=== PATIENT | female | born 1980 | race Caucasian/White ===

== ENCOUNTER 2017-03-18 07:47 | Day surgery (SDC) | payer BC, OTHER ==
--- NOTE | 2017-03-18 07:43 | PCM.PREANE ---
Preanesthetic Assessment - Anesthesia/Transfusion/Family Hx Anesthesia History: Prior Anesthesia Without Reaction Family History of Anesthesia Reaction: No Transfusion History: No Prior Transfusion(s) Intubation History: Unknown - Review of Systems General: No Symptoms Pulmonary: No Symptoms Cardiovascular: Palpitations Gastrointestinal: No symptoms Neurological: No Symptoms, Dizziness (Patient states she has potentially vertigo on occasion.) Other: Reports: Easy Bruising - Physical Assessment NPO Status Date: 03/17/17 NPO Status Time: 23:00 Pulse: 78 O2 Sat by Pulse Oximetry: 97 Respiratory Rate: 16 Blood Pressure: 130/65 Temperature: 36.8 C Height: 1.55 m Weight: 99.79 kg ASA Class: 2 Mental Status: Alert & Oriented x3 Airway Class: Mallampati = 2 Dentition: Reports: Normal Dentition, [place](s) (upper front), Caries Thyro-Mental Finger Breadths: 3 Mouth Opening Finger Breadths: 3 ROM/Head Extension: Full Lungs: Clear to auscultation, Normal respiratory effort Cardiovascular: Regular Rate, Regular Rhythm, No Murmurs - Lab Values: HCG is negative. - Allergies Allergies/Adverse Reactions: Allergies Allergy/AdvReac Type Severity Reaction Status Date / Time adhesive Allergy Rash Verified 03/17/17 13:27 - Anesthesia Plan Pre-Op Medication Ordered: None - Acknowledgements Anesthesia Type Planned: MAC Pt an Appropriate Candidate for the Planned Anesthesia: Yes Alternatives and Risks of Anesthesia Discussed w Pt/Guardian: Yes Pt/Guardian Understands and Agrees with Anesthesia Plan: Yes PreAnesthesia Questionnaire HEENT History: Reports: Impaired Vision, Other (See Below) Other HEENT History: contact/glasses Cardiovascular History: Reports: None Respiratory History: Reports: None Genitourinary History: Reports: Other (See Below) Other Genitourinary History: L breast mass 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: Musculoskeletal History: Reports: None Neurological History: Reports: None Psychiatric History: Reports: None Endocrine/Metabolic History: Reports: None Hematologic History: Reports: None Immunologic History: Reports: None Oncologic (Cancer) History: Reports: None Dermatologic History: Reports: Other (See Below) Other Dermatologic History: contact dermatitis, infected cyst of skin, sebaceous cyst - Past Surgical History Head Surgeries/Procedures: Reports: None GI Surgical History: Reports: Appendectomy Female Surgical History: Reports: Section - SUBSTANCE USE Smoking Status *Q: Never Smoker Recreational Drug Use History: No - HOME MEDS Home Medications: Home Meds . [No Known Home Meds] 03/17/17 [History] - CURRENT (IN HOUSE) MEDS Current Meds: Current Medications Lactated Ringer's (Ringers, Lactated) 1,000 mls @ 125 mls/hr IV ASDIRECTED URBANO Lidocaine/Sodium Bicarbonate (Buffered Lidocaine 1% In Ns 8.4%) 0.25 ml IV ONETIME PRN PRN Reason: Prior to IV Start Sodium Chloride (Saline Flush) 10 ml FLUSH ASDIRECTED PRN PRN Reason: Keep Vein Open Discontinued Medications Cefazolin Sodium (Ancef) Confirm Administered Dose 2 gm .ROUTE .STK-MED ONE Stop: 03/18/17 07:38 Fentanyl (Sublimaze) Confirm Administered Dose 100 mcg .ROUTE .STK-MED ONE Stop: 03/18/17 07:38 Lidocaine HCl (Xylocaine-Mpf 1%) Confirm Administered Dose 4 mls @ as directed .ROUTE .STK-MED ONE Stop: 03/18/17 07:38 Midazolam HCl (Versed 1 Mg/Ml) Confirm Administered Dose 2 mg .ROUTE .STK-MED ONE Stop: 03/18/17 07:39 Propofol (Diprivan 20 Ml) Confirm Administered Dose 200 mg .ROUTE .STK-MED ONE Stop: 03/18/17 07:38
[~2017-03-18 07:47] MED LIST: Lactated Ringers 1,000 ML IV SCH; Lidocaine 1% 4 ML ONE; Lidocaine 1%/Sod Bicarbonate in NS 8.4% 1 ML Syringe IV PRN; Midazolam 1 MG/ML 2 ML SDV ONE; Propofol 200 MG/20 ML SDV ONE; Sodium Chloride 0.9% 10 ML Syringe FLUSH PRN; ceFAZolin 1 GM Vial ONE; fentaNYL 100 MCG/2 ML SDV ONE
[2017-03-18] MEDS ORDERED: Lidocaine 1% with EPINEPHrine 1:100,000 20 ML MDV ONE (07:55)
[2017-03-18] MEDS ORDERED: Bupivacaine 0.5%/EPINEPHrine 1:200,000 50 ML MDV ONE (07:55)
[2017-03-18] MEDS ORDERED: Ondansetron 4 MG/2 ML SDV IVPUSH PRN (08:51)
[2017-03-18] MEDS ORDERED: fentaNYL 100 MCG/2 ML SDV IVPUSH PRN (08:51)
--- NOTE | 2017-03-18 09:19 | PCM48HPAN ---
Post Anesthesia Note - EVALUATION WITHIN 48HRS OF ANESTHETIC Vital Signs in Normal Range: Yes Patient Participated in Evaluation: Yes Respiratory Function Stable: Yes Airway Patent: Yes Cardiovascular Function Stable: Yes Hydration Status Stable: Yes Pain Control Satisfactory: Yes Nausea and Vomiting Control Satisfactory: Yes Mental Status Recovered: Yes
--- NOTE | 2017-03-18 09:26 | PCM.OPNOTE ---
- General Post-Op/Procedure Note Date of Surgery/Procedure: 03/18/17 Operative Procedure(s): Elliptical excision of a 1 cm junctional skin cyst left breast Findings: Some chronic scarring with a 1 mm chronically inflamed skin cyst left breast Pre Op Diagnosis: Skin cyst left breast Post-Op Diagnosis: Same Anesthesia Technique: Local, MAC, Moderate sedation Primary Surgeon: Deshawn Barros Pathology: Skin cyst EBL in mLs: 1 Complications: None Condition: Good Free Text/Narrative:: After adequate IV sedation and analgesia was obtained the patient was placed in the supine position. The left breast and anterior chest wall were prepped and draped sterilely for the procedure. Several cc of local analgesia was infiltrated into the skin and subcutaneous tissue to the area. A 1-1/2 cm elliptically based excision was used to excise the previous I and D site. Flaps were raised superiorly and inferiorly with iris scissors. I the cyst and some scarring from surrounding subcutaneous tissue. I then closed the subcutaneous tissue with interrupted 3-0 Vicryl suture. The skin was closed with 5-0 Vicryl suture. Steri-Strips and gauze with Tegaderm were used for the dressing. There were no combinations.
[2017-03-18 10:23] VITALS: BP 110/64
== END 2017-03-18 10:25 | disposition home or self-care (01) ==
LOC: JD.SDS 07:47
PROVIDERS: ATTEND Surgery
PROC: 0HBU0ZZ Excision of Left Breast, Open Approach (ICD-10-PCS; principal; 2017-03-18)
DX: L91.0 Hypertrophic scar (principal); Z90.49 Acquired absence of other specified parts of digestive tract; Z98.890 Other specified postprocedural states
CPT/HCPCS: 19120; 81025; J0690; J2250; J3010; J7120; 00400; J2704

== ENCOUNTER 2019-07-24 18:50 | Emergency (ER) | payer BC ==
[2019-07-24 19:01] VITALS: BP 150/79; PULSE 94
[2019-07-24] MEDS ORDERED: Sodium Chloride 0.9% 10 ML Syringe FLUSH PRN (19:32)
[2019-07-24] MEDS ORDERED: HYDROmorphone 0.5 MG/0.5 ML Syringe IVPUSH ONE (19:34)
[2019-07-24] MEDS ORDERED: Sodium Chloride 0.9% 1,000 ML IV ONE (19:34)
--- NOTE | 2019-07-24 19:55 | EDM.PDOC ---
<Ping Monroe - Last Filed: 07/24/19 19:48> ED HPI GENERAL MEDICAL PROBLEM - General Chief Complaint: Abdominal Pain Stated Complaint: RIGHT SIDE PAIN Time Seen by Provider: 07/24/19 19:08 Source of Information: Reports: Patient History Limitations: Reports: No Limitations - History of Present Illness INITIAL COMMENTS - FREE TEXT/NARRATIVE: Juanita is a pleasant 39 year old female who came to the ED today to be evaluated for right sided abdominal pain. The pain started yesterday around noon and has gotten progressively worse since that time. She describes the pain as sharp, becoming worse with inspiration and palpation along the lower border of her ribs. The pain goes from her right hip to the bottom of her right rib cage with radiation into her right shoulder. She also states she is having a hard time breathing due to the pain. She has also had an increase in heart burn over the last 24 hours. She has a history of gallstones and an appendectomy in 2003. She has had a normal bowel movement today and yesterday. She denies any nausea, vomiting, weight change, fever or chills. Her last meal was around 1230 today. Right Abdomen Pain Score (Numeric/FACES): 7 - Related Data Allergies Allergy/AdvReac Type Severity Reaction Status Date / Time adhesive Allergy Rash Verified 07/24/19 19:01 Home Meds: Home Meds Levonorgestrel-Ethin Estradiol [Levonor-Eth Estrad 0.1-0.02 mg] 1 tab PO DAILY 07/24/19 [History] metroNIDAZOLE [Metronidazole] 1 applic TOP DAILY 07/24/19 [History] valACYclovir [Valtrex] 500 mg PO ASDIRECTED PRN 07/24/19 [History] Past Medical History HEENT History: Reports: Impaired Vision, Other (See Below) Other HEENT History: contact/glasses Cardiovascular History: Reports: None Respiratory History: Reports: None Genitourinary History: Reports: Other (See Below) Other Genitourinary History: L breast mass 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: Musculoskeletal History: Reports: None Neurological History: Reports: None Psychiatric History: Reports: None Endocrine/Metabolic History: Reports: Obesity/BMI 30+ Hematologic History: Reports: None Immunologic History: Reports: None Oncologic (Cancer) History: Reports: None Dermatologic History: Reports: Other (See Below) Other Dermatologic History: contact dermatitis, infected cyst of skin, sebaceous cyst - Infectious Disease History Infectious Disease History: Reports: None - Past Surgical History Head Surgeries/Procedures: Reports: None GI Surgical History: Reports: Appendectomy Female Surgical History: Reports: Section Social & Family History - Tobacco Use Smoking Status *Q: Never Smoker - Caffeine Use Caffeine Use: Reports: Coffee - Recreational Drug Use Recreational Drug Use: No ED ROS GENERAL - Review of Systems Review Of Systems: See Below Constitutional: Reports: No Symptoms HEENT: Reports: No Symptoms Respiratory: Reports: No Symptoms Cardiovascular: Reports: No Symptoms Endocrine: Reports: No Symptoms GI/Abdominal: Reports: Abdominal Pain, Decreased Appetite. Denies: Constipation , Diarrhea, Distension, Vomiting : Reports: No Symptoms Musculoskeletal: Reports: Shoulder Pain (right shoulder ) Skin: Reports: No Symptoms Neurological: Reports: No Symptoms Psychiatric: Reports: No Symptoms Hematologic/Lymphatic: Reports: No Symptoms Immunologic: Reports: No Symptoms ED EXAM, GI/ABD - Physical Exam Exam: See Below Exam Limited By: No Limitations General Appearance: Alert, WD/WN, No Apparent Distress Respiratory/Chest: No Respiratory Distress, Lungs Clear, Normal Breath Sounds, No Accessory Muscle Use, Chest Non-Tender Cardiovascular: Normal Peripheral Pulses, Regular Rate, Rhythm, No Edema, No Gallop, No JVD, No Murmur, No Rub GI/Abdominal Exam: Normal Bowel Sounds, Soft, No Organomegaly, No Distention, No Abnormal Bruit, No Mass, Tender (Female) Exam: Normal External Exam, Normal Speculum Exam, Normal Bimanual Exam Rectal (Female) Exam: Normal Exam, Normal Rectal Tone Back Exam: Normal Inspection, Full Range of Motion. No: CVA Tenderness (L), CVA Tenderness (R) Extremities: Normal Inspection, Normal Range of Motion, Non-Tender, No Pedal Edema, Normal Capillary Refill Neurological: Alert, Oriented Psychiatric: Normal Affect, Normal Mood Skin Exam: Warm, Dry, Intact, Normal Color, No Rash Lymphatic: No Adenopathy Course - Vital Signs Last Recorded V/S: Last Vital Signs Temp 97.4 F 07/24/19 18:57 Pulse 94 07/24/19 18:57 Resp 16 07/24/19 18:57 BP 150/79 H 07/24/19 18:57 Pulse Ox 98 07/24/19 18:57 - Orders/Labs/Meds Orders: Active Orders 24 hr Category Date Time Status Peripheral IV Care [RC] . DIRECTED Care 07/24/19 19:34 Active Abdomen Ltd [US] Stat Exams 07/24/19 19:30 Taken Sodium Chloride 0.9% [Saline Flush] Med 07/24/19 19:32 Active 10 ml FLUSH ASDIRECTED PRN Peripheral IV Insertion Adult [OM.PC] Stat Oth 07/24/19 19:32 Ordered Medication Orders Sodium Chloride (Saline Flush) 10 ml FLUSH ASDIRECTED PRN PRN Reason: Keep Vein Open Last Admin: 07/24/19 19:58 Dose: 10 ml Labs: Laboratory Tests 07/24/19 07/24/19 07/24/19 Range/Units 19:45 19:45 20:30 WBC 9.77 (3.98-10.04) K/mm3 RBC 4.73 (3.98-5.22) M/mm3 Hgb 12.8 (11.2-15.7) gm/dl Hct 38.0 (34.1-44.9) % MCV 80.3 (79.4-94.8) fl MCH 27.1 (25.6-32.2) pg MCHC 33.7 (32.2-35.5) g/dl RDW Std Deviation 40.6 (36.4-46.3) fL Plt Count 343 (182-369) K/mm3 MPV 8.9 L (9.4-12.3) fl Neutrophils % (Manual) 62 H (40-60) % Band Neutrophils % 1 (0-10) % Lymphocytes % (Manual) 28 (20-40) % Atypical Lymphs % 0 % Monocytes % (Manual) 9 (2-10) % Eosinophils % (Manual) 0 L (0.7-5.8) % Basophils % (Manual) 0 L (0.1-1.2) Platelet Estimate Adequate RBC Morph Comment Normal Sodium 138 (136-145) mEq/L Potassium 3.7 (3.5-5.1) mEq/L Chloride 103 (98-107) mEq/L Carbon Dioxide 24 (21-32) mEq/L Anion Gap 14.7 (5-15) BUN 11 (7-18) mg/dL Creatinine 0.9 (0.55-1.02) mg/dL Est Cr Clr Drug Dosing 62.70 mL/min Estimated GFR (MDRD) > 60 (>60) mL/min BUN/Creatinine Ratio 12.2 L (14-18) Glucose 84 (74-106) mg/dL Calcium 8.8 (8.5-10.1) mg/dL Total Bilirubin 0.3 (0.2-1.0) mg/dL GGT 27 (5-55) U/L AST 14 L (15-37) U/L ALT 24 (14-59) U/L Alkaline Phosphatase 77 (46-116) U/L Total Protein 8.0 (6.4-8.2) g/dl Albumin 4.0 (3.4-5.0) g/dl Globulin 4.0 gm/dL Albumin/Globulin Ratio 1.0 (1-2) Lipase 90 (73-393) U/L Urine Color Light yellow (Yellow) Urine Appearance Clear (Clear) Urine pH 6.0 (5.0-8.0) Ur Specific Burnham 1.015 (1.005-1.030) Urine Protein Negative (Negative) Urine Glucose (UA) Negative (Negative) Urine Ketones Negative (Negative) Urine Occult Blood Negative (Negative) Urine Nitrite Negative (Negative) Urine Bilirubin Negative (Negative) Urine Urobilinogen 0.2 (0.2-1.0) Ur Leukocyte Esterase Negative (Negative) Urine RBC 0-5 (0-5) /hpf Urine WBC 0-5 (0-5) /hpf Ur Squamous Epith Cells 0-5 (0-5) /hpf Urine Bacteria Occasional (FEW) /hpf Urine Mucus Not seen (FEW) /hpf Meds: Medications Generic Name Dose Route Start Last Admin Trade Name Freq PRN Reason Stop Dose Admin Sodium Chloride 10 ml 07/24/19 19:32 07/24/19 19:58 Saline Flush FLUSH 10 ml ASDIRECTED PRN Administration Keep Vein Open Discontinued Medications Generic Name Dose Route Start Last Admin Trade Name Freq PRN Reason Stop Dose Admin Hydromorphone HCl 0.5 mg 07/24/19 19:34 07/24/19 19:52 Dilaudid IVPUSH 07/24/19 19:35 0.5 mg ONETIME ONE Administration Sodium Chloride 1,000 mls @ 500 mls/hr 07/24/19 19:34 07/24/19 19:58 Normal Saline IV 07/24/19 21:33 500 mls/hr ONETIME ONE Administration Ondansetron HCl 4 mg 07/24/19 20:01 07/24/19 21:53 Zofran IVPUSH 07/24/19 20:02 Not Given ONETIME ONE Departure - Departure Disposition: Home, Self-Care 01 Clinical Impression: Biliary colic Cholelithiasis Qualifiers: Cholelithiasis location: gallbladder Cholecystitis presence: without cholecystitis Biliary obstruction: without biliary obstruction Qualified Code(s) : K80.20 - Calculus of gallbladder without cholecystitis without obstruction - Discharge Information Instructions: Cholelithiasis, [id number], Biliary Colic, Adult, Gallbladder Eating Plan Referrals: Cecilia Dao PRINCIPAL MECHANICAL ENGINEER [Primary Care Provider] - Forms: ED Department Discharge Additional Instructions: You were evaluated in the ER today regarding your right upper quadrant pain. Your laboratory evaluation was within normal limits, your ultrasound demonstrated that you do have this a stone in her gallbladder, but there was no acute gallbladder infection at today's visit. A surgeon, Dr. Smith was consulted on your case, and he suggested taking 60 mg ibuprofen every 6 hours as needed for further pain relief, and follow up with with either him or the other general surgeon, Dr. Blank for consultation for removal. You were given a copy of the ultrasound results, please take these with to your appointment with the general surgeon. Please return to the ED if your symptoms should change or worsen. - My Orders Last 24 Hours: My Active Orders 07/24/19 19:30 Abdomen Ltd [US] Stat 07/24/19 19:32 Sodium Chloride 0.9% [Saline Flush] 10 ml FLUSH ASDIRECTED PRN Peripheral IV Insertion Adult [OM.PC] Stat 07/24/19 19:34 Peripheral IV Care [RC] . DIRECTED - Assessment/Plan Last 24 Hours: My Active Orders 07/24/19 19:30 Abdomen Ltd [US] Stat 07/24/19 19:32 Sodium Chloride 0.9% [Saline Flush] 10 ml FLUSH ASDIRECTED PRN Peripheral IV Insertion Adult [OM.PC] Stat 07/24/19 19:34 Peripheral IV Care [RC] . DIRECTED <Josiane Nixon - Last Filed: 07/24/19 23:06> ED HPI GENERAL MEDICAL PROBLEM - History of Present Illness INITIAL COMMENTS - FREE TEXT/NARRATIVE: I have read and reviewed the student's HPI and examined the patient and agree with FRANSICO Ware-student. Course - Orders/Labs/Meds Labs: Laboratory Tests 07/24/19 07/24/19 07/24/19 Range/Units 19:45 19:45 20:30 WBC 9.77 (3.98-10.04) K/mm3 RBC 4.73 (3.98-5.22) M/mm3 Hgb 12.8 (11.2-15.7) gm/dl Hct 38.0 (34.1-44.9) % MCV 80.3 (79.4-94.8) fl MCH 27.1 (25.6-32.2) pg MCHC 33.7 (32.2-35.5) g/dl RDW Std Deviation 40.6 (36.4-46.3) fL Plt Count 343 (182-369) K/mm3 MPV 8.9 L (9.4-12.3) fl Neutrophils % (Manual) 62 H (40-60) % Band Neutrophils % 1 (0-10) % Lymphocytes % (Manual) 28 (20-40) % Atypical Lymphs % 0 % Monocytes % (Manual) 9 (2-10) % Eosinophils % (Manual) 0 L (0.7-5.8) % Basophils % (Manual) 0 L (0.1-1.2) Platelet Estimate Adequate RBC Morph Comment Normal Sodium 138 (136-145) mEq/L Potassium 3.7 (3.5-5.1) mEq/L Chloride 103 (98-107) mEq/L Carbon Dioxide 24 (21-32) mEq/L Anion Gap 14.7 (5-15) BUN 11 (7-18) mg/dL Creatinine 0.9 (0.55-1.02) mg/dL Est Cr Clr Drug Dosing 62.70 mL/min Estimated GFR (MDRD) > 60 (>60) mL/min BUN/Creatinine Ratio 12.2 L (14-18) Glucose 84 (74-106) mg/dL Calcium 8.8 (8.5-10.1) mg/dL Total Bilirubin 0.3 (0.2-1.0) mg/dL GGT 27 (5-55) U/L AST 14 L (15-37) U/L ALT 24 (14-59) U/L Alkaline Phosphatase 77 (46-116) U/L Total Protein 8.0 (6.4-8.2) g/dl Albumin 4.0 (3.4-5.0) g/dl Globulin 4.0 gm/dL Albumin/Globulin Ratio 1.0 (1-2) Lipase 90 (73-393) U/L Urine Color Light yellow (Yellow) Urine Appearance Clear (Clear) Urine pH 6.0 (5.0-8.0) Ur Specific Burnham 1.015 (1.005-1.030) Urine Protein Negative (Negative) Urine Glucose (UA) Negative (Negative) Urine Ketones Negative (Negative) Urine Occult Blood Negative (Negative) Urine Nitrite Negative (Negative) Urine Bilirubin Negative (Negative) Urine Urobilinogen 0.2 (0.2-1.0) Ur Leukocyte Esterase Negative (Negative) Urine RBC 0-5 (0-5) /hpf Urine WBC 0-5 (0-5) /hpf Ur Squamous Epith Cells 0-5 (0-5) /hpf Urine Bacteria Occasional (FEW) /hpf Urine Mucus Not seen (FEW) /hpf - Re-Assessments/Exams Free Text/Narrative Re-Assessment/Exam: 07/24/19 20:08 Patient presents to the ED for the evaluation of right-sided abdominal pain. Did order CBC, CMP, lipase, GGT, IV with some IV fluids, 0.5 mg IV Dilaudid. 07/24/19 22:57 Patient's laboratory evaluation was essentially within normal limits, the patient's ultrasound demonstrated a 2.4 cm gallstone. No gallbladder wall thickening. No pericholecystic fluid. And a negative sonographic De Dios sign. Common bile duct measured at 3 mm, with no stones or dilatation noted. The case was discussed with Dr. Smith, our general surgeon station installation supervisor, and he notes that there is no urgent situation, and suggest this is biliary colic. He recommends sending the patient home with recommendations for NSAID therapy, and tramadol prescription if she should need something extra for pain. He notes he be able see her in the clinic tomorrow for consultation. Patient states that she does have a previous surgical consult with a surgeon, for which she could not remember the name, tomorrow at around noon. I will relay this information to the patient and see how she would like to proceed. Departure - Departure Time of Disposition: 23:03 Condition: Fair - Discharge Information *PRESCRIPTION DRUG MONITORING PROGRAM REVIEWED*: No *COPY OF PRESCRIPTION DRUG MONITORING REPORT IN PATIENT CAROL ANN: No
[2019-07-24] MEDS ORDERED: Ondansetron 4 MG/2 ML SDV IVPUSH ONE (20:01)
--- NOTE | 2019-07-27 08:01 | US ---
Limited abdominal ultrasound: Multiple real-time images of the right upper abdomen were obtained. Comparison: Previous right upper quadrant abdominal ultrasound of 09/12/18. Large gallstone seen within the gallbladder measuring around 2.0 cm. This is noted on previous exam. No gallbladder wall thickening or biliary duct dilatation is seen. Visualized portions of the liver show no discrete abnormality. Pancreas is incompletely seen due to bowel gas. Visualized portions of the pancreas are within normal limits. Right kidney shows no hydronephrosis or discrete mass. Right kidney has a length of 10.6 cm. Inferior vena cava is patent. Portal vein shows normal hepatopedal flow. Impression: 1. Single large gallstone within the gallbladder. This is similar to previous exam. No gallbladder wall thickening or biliary duct dilatation seen. 2. No additional abnormality is definitely appreciated on right upper quadrant abdominal ultrasound exam. Diagnostic code #3 I agree with preliminary report from ad, finalized on 07/24/19, 11:27 PM Central Time
== END 2019-07-24 23:14 | disposition home or self-care (01) ==
LOC: JD.ED 18:50
DX: K80.70 Calculus of gallbladder and bile duct without cholecystitis without obstruction (principal); E66.9 Obesity, unspecified; Z68.41 Body mass index [BMI] 40.0-44.9, adult; Z91.048 Other nonmedicinal substance allergy status
CPT/HCPCS: 36415; 76705; 80053; 81001; 82977; 83690; 85007; 85027; 96361; 96374; 99284; J1170; J7040

== ENCOUNTER 2019-07-31 07:06 | Day surgery (SDC) | payer BC ==
[~2019-07-31 07:06] MED LIST changes: -Lidocaine 1% 4 ML ONE; +Lidocaine 1%/Sod Bicarbonate in NS 8.4% 1 ML Syringe IDERM PRN; -Lidocaine 1%/Sod Bicarbonate in NS 8.4% 1 ML Syringe IV PRN; -Midazolam 1 MG/ML 2 ML SDV ONE; -Propofol 200 MG/20 ML SDV ONE; -ceFAZolin 1 GM Vial ONE; -fentaNYL 100 MCG/2 ML SDV ONE
[2019-07-31] MEDS ORDERED: fentaNYL 250 MCG/5 ML SDV ONE (07:07)
[2019-07-31] MEDS ORDERED: Midazolam 1 MG/ML 2 ML SDV ONE (07:07)
[2019-07-31] MEDS ORDERED: Ondansetron 4 MG/2 ML SDV ONE (07:07)
[2019-07-31] MEDS ORDERED: ceFAZolin 1 GM Vial ONE (07:07)
[2019-07-31] MEDS ORDERED: Rocuronium 50 MG/5 ML Vial ONE (07:07)
[2019-07-31] MEDS ORDERED: Dexamethasone 4 MG/ML 5 ML MDV ONE (07:07)
[2019-07-31] MEDS ORDERED: Propofol 200 MG/20 ML SDV ONE (07:07)
[2019-07-31] MEDS ORDERED: Ketorolac 30 MG/ML SDV ONE (07:07)
[2019-07-31] MEDS ORDERED: Neostigmine Methylsulfate 1 MG/ML 5 ML Syringe ONE (07:09)
--- NOTE | 2019-07-31 07:25 | PCM.PREANE ---
Preanesthetic Assessment - Anesthesia/Transfusion/Family Hx Anesthesia History: Prior Anesthesia Without Reaction Family History of Anesthesia Reaction: No Transfusion History: No Prior Transfusion(s) Intubation History: Unknown - Review of Systems General: No Symptoms, Other (BMI 44.4) Pulmonary: No Symptoms Cardiovascular: No Symptoms Gastrointestinal: Other (occassional heartburn, feels related to gallbladder) Neurological: No Symptoms Other: Reports: None - Physical Assessment NPO Status Date: 07/30/19 NPO Status Time: 23:35 Height: 1.55 m Weight: 106.231 kg ASA Class: 2 Mental Status: Alert & Oriented x3 Airway Class: Mallampati = 2 Dentition: Reports: Normal Dentition Thyro-Mental Finger Breadths: 3 Mouth Opening Finger Breadths: 3 ROM/Head Extension: Full Lungs: Clear to Auscultation, Normal Respiratory Effort Cardiovascular: Regular Rate, Regular Rhythm - Allergies Allergies/Adverse Reactions: Allergies Allergy/AdvReac Type Severity Reaction Status Date / Time adhesive Allergy Rash Verified 07/30/19 10:08 - Blood Blood Available: No Product(s) Available: None - Anesthesia Plan Pre-Op Medication Ordered: None - Acknowledgements Anesthesia Type Planned: General Anesthesia Pt an Appropriate Candidate for the Planned Anesthesia: Yes Alternatives and Risks of Anesthesia Discussed w Pt/Guardian: Yes Pt/Guardian Understands and Agrees with Anesthesia Plan: Yes PreAnesthesia Questionnaire HEENT History: Reports: Impaired Vision, Other (See Below) Other HEENT History: contact/glasses Cardiovascular History: Reports: None Respiratory History: Reports: None Gastrointestinal History: Reports: Other (See Below) Other Gastrointestinal History: abdominal pain, RUQ pain Genitourinary History: Reports: Other (See Below) Other Genitourinary History: L breast mass 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 OB/BYN History: breast fibroadenoma, yeast infection Musculoskeletal History: Reports: None Neurological History: Reports: None Psychiatric History: Reports: None Endocrine/Metabolic History: Reports: Obesity/BMI 30+ Hematologic History: Reports: None Immunologic History: Reports: None Oncologic (Cancer) History: Reports: None Dermatologic History: Reports: Other (See Below) Other Dermatologic History: contact dermatitis, infected cyst of skin, sebaceous cyst, acne, herpes labialis, rosacea - Infectious Disease History Infectious Disease History: Reports: None - Past Surgical History Head Surgeries/Procedures: Reports: None Cardiovascular Surgical History: Reports: None Respiratory Surgical History: Reports: None GI Surgical History: Reports: Appendectomy Female Surgical History: Reports: Section Endocrine Surgical History: Reports: None Neurological Surgical History: Reports: None Musculoskeletal Surgical History: Reports: None Oncologic Surgical History: Reports: None - SUBSTANCE USE Smoking Status *Q: Never Smoker Recreational Drug Use History: No - HOME MEDS Home Medications: Home Meds Levonorgestrel-Ethin Estradiol [Levonor-Eth Estrad 0.1-0.02 mg] 1 tab PO DAILY 07/24/19 [History] metroNIDAZOLE [Metronidazole] 1 applic TOP BID PRN 07/24/19 [History] valACYclovir [Valtrex] 500 mg PO ASDIRECTED PRN 07/24/19 [History] Lysine 500 mg PO DAILY PRN 07/30/19 [History] Multivitamin [Daily Multiple Vitamin] 1 tab PO DAILY 07/30/19 [History] - CURRENT (IN HOUSE) MEDS Current Meds: Current Medications Lactated Ringer's (Ringers, Lactated) 1,000 mls @ 125 mls/hr IV ASDIRECTED URBANO Stop: 07/31/19 23:00 Lidocaine/Sodium Bicarbonate (Buffered Lidocaine 1% In Ns 8.4%) 0.25 ml IDERM ONETIME PRN PRN Reason: Prior to IV Start Stop: 07/31/19 18:00 Sodium Chloride (Saline Flush) 10 ml FLUSH ASDIRECTED PRN PRN Reason: Keep Vein Open Stop: 07/31/19 18:00 Discontinued Medications Cefazolin Sodium (Ancef) Confirm Administered Dose 2 gm .ROUTE .STK-MED ONE Stop: 07/31/19 07:08 Dexamethasone (Dexamethasone) Confirm Administered Dose 20 mg .ROUTE .STK-MED ONE Stop: 07/31/19 07:08 Fentanyl (Sublimaze) Confirm Administered Dose 250 mcg .ROUTE .STK-MED ONE Stop: 07/31/19 07:08 Glycopyrrolate () Confirm Administered Dose 1 mg .ROUTE .STK-MED ONE Stop: 07/31/19 07:10 Ketorolac Tromethamine (Toradol) Confirm Administered Dose 30 mg .ROUTE .STK- MED ONE Stop: 07/31/19 07:08 Midazolam HCl (Versed 1 Mg/Ml) Confirm Administered Dose 2 mg .ROUTE .STK-MED ONE Stop: 07/31/19 07:08 Neostigmine Methylsulfate (Neostigmine) Confirm Administered Dose 5 mg .ROUTE .STK-MED ONE Stop: 07/31/19 07:10 Ondansetron HCl (Zofran) Confirm Administered Dose 4 mg .ROUTE .STK-MED ONE Stop: 07/31/19 07:08 Propofol (Diprivan 20 Ml) Confirm Administered Dose 200 mg .ROUTE .STK-MED ONE Stop: 07/31/19 07:08 Rocuronium [place] (Zemuron) Confirm Administered Dose 50 mg .ROUTE .STK-MED ONE Stop: 07/31/19 07:08
[2019-07-31] MEDS: Bupivacaine 0.5%/EPINEPHrine 1:200,000 50 ML MDV ONE ×2 (08:12→08:21)
[2019-07-31] MEDS ORDERED: Ketamine 500 mg/10 ML MDV ONE (08:15)
[2019-07-31] MEDS ORDERED: fentaNYL 100 MCG/2 ML SDV ONE (08:31)
[2019-07-31] MEDS ORDERED: diphenhydrAMINE 50 MG/ML SDV IVPUSH PRN (09:41)
--- NOTE | 2019-07-31 09:42 | PCM.POSTAN ---
POST ANESTHESIA ASSESSMENT - MENTAL STATUS Mental Status: Alert, Oriented - VITAL SIGNS Vital Signs: Last Vital Signs Temp 36.8 C 07/31/19 07:20 Pulse 89 07/31/19 07:20 Resp 16 07/31/19 07:20 BP 117/91 H 07/31/19 07:20 Pulse Ox 95 07/31/19 07:20 - RESPIRATORY Respiratory Status: Respiratory Rate WNL, Airway Patent, O2 Saturation Stable, Supplemental Oxygen - CARDIOVASCULAR CV Status: Pulse Rate WNL, Blood Pressure Stable - GASTROINTESTINAL GI Status: No Symptoms - PAIN Pain Score: 5 (iv meds ordered) - POST OP HYDRATION Hydration Status: Adequate & Stable
--- NOTE | 2019-07-31 09:50 | PCM.PRNOTE ---
- Free Text/Narrative Note: Operative Report Operation: laparoscopic cholecystectomy, excision of left breast hypertrophic scar Date: 07/31/2019 Attending Surgeon: Valdo Blank MD Indication for Surgery:symptomatic cholelithiasis Preoperative antibiotics: 2 g Ancef IV VTE prophylaxis: Heparin 5000 u SC, SCDs Estimated Blood Loss: 50 cc Findings: large gallstone. Uneventful laparoscopic cholecystectomy. Limberg flap closure after elliptical excision of left breast lesion. Detailed Report: The patient underwent general endotracheal anesthesia after being placed supine on the operating table and initial timeout. The abdomen was prepped and draped in sterile fashion. A pre-incision timeout was performed confirming the patient s identity and the operation to be performed. A Veress needle was inserted into the abdominal cavity below the left costal margin along the mid-clavicular line. The abdomen was insufflated with CO2 to 15 mm Hg. Gas was aspirated below the umbilicus with a syringe in order to ensure safe placement of a 5 mm bladed laparoscopic port. The 5mm 30 degree laparoscope was then inserted and viscera inspected. The gallbladder appeared fairly normal. Two additional 5 mm ports were placed along the right subcostal region under direct vision with the laparoscope, and a 12 mm port was placed at the subxiphoid region. The gallbladder was grasped at the fundus with a locking grasper and retracted anteriorly and superiorly, exposing the infundibulum. This was grasped with the surgeons left hand grasper and retracted laterally. The hook electrode was used to open the overlying peritoneum, and this plane of dissection was developed along the edges of the gallbladder at its interface with the liver bed. A combination of hook electrode, blunt dissection with the suction dye house supervisor and laparoscopic Kittner dissector, and the [place] grasper were used to carefully expose and skeletonize the cystic duct and artery. A critical view of safety was obtained. Hemolock clips were then placed on both structures ; two each on the stay side and one each on the specimen side. The duct and artery were transected with laparoscopic scissors. The hook was then used to dissect the gallbladder free from its attachment to the liver. There was some bleeding from a posterior arterial branch that was controlled with pressure and electrocautery. The specimen was then placed in an Endocatch bag and removed through the subxiphoid port. The liver bed was inspected and appeared hemostatic after irrigation and suctioning. The larger subxiphoid port was closed at the level of the fascia with vicryl suture using the PMI laparoscopic suture passer. Pneumoperitoneum was then released. All skin incisions were then closed with placement of subcuticular vicryl suture and dressed with dermabond. A total of 20 cc 0.5% marcaine with epinephrine was used for local anesthesia at the incision sites. 10 cc local anesthetic was then inject intradermally at the site of the marked left breast lesion. The skin and underlying subcutaneous fat was excised in an ellipse measuring approximately 2 x 3 cm. Dissection was down to the level of pectoralis fascia. A Limberg flap was developed inferiorly, and the wound was closed in an inverted U shape using layers of vicryl suture with good skin approximation and no skin dimpling or undue tension. The wound was then dressed with dermabond. The patient tolerated the operation well, was extubated in the operating room and transferred to the PACU for routine post-anesthesia care. Valdo Blank MD General Surgery
[2019-07-31] MEDS: fentaNYL 100 MCG/2 ML SDV IVPUSH PRN ×2 (09:51→10:00)
[2019-07-31] MEDS ORDERED: Midazolam 1 MG/ML 2 ML SDV IVPUSH PRN (10:06)
[2019-07-31] MEDS ORDERED: oxyCODONE 5 MG Tab PO PRN (10:16)
--- NOTE | 2019-07-31 10:45 | PCM48HPAN ---
Post Anesthesia Note - EVALUATION WITHIN 48HRS OF ANESTHETIC Vital Signs in Normal Range: Yes Patient Participated in Evaluation: Yes Respiratory Function Stable: Yes Airway Patent: Yes Cardiovascular Function Stable: Yes Hydration Status Stable: Yes Pain Control Satisfactory: Yes Nausea and Vomiting Control Satisfactory: Yes Mental Status Recovered: Yes Vital Signs: Last Vital Signs Temp 36.4 C 07/31/19 10:40 Pulse 89 07/31/19 07:20 Resp 16 07/31/19 10:40 BP 127/62 07/31/19 10:40 Pulse Ox 96 07/31/19 10:40
[2019-07-31] MEDS ORDERED: Ondansetron 4 MG/2 ML SDV IVPUSH PRN (10:49)
[2019-07-31] MEDS ORDERED: fentaNYL 100 MCG/2 ML SDV IVPUSH SCH (12:25)
[2019-07-31] MEDS ORDERED: Ketorolac 15 MG/ML SDV IVPUSH SCH (13:00)
[2019-07-31 14:09] VITALS: BP 123/78; PULSE 72
== END 2019-07-31 14:25 | disposition home or self-care (01) ==
LOC: JD.SDS 07:06
PROVIDERS: ATTEND Surgery
DX: K80.10 Calculus of gallbladder with chronic cholecystitis without obstruction (principal); L91.0 Hypertrophic scar; K82.8 Other specified diseases of gallbladder; E66.9 Obesity, unspecified; Z68.41 Body mass index [BMI] 40.0-44.9, adult; Z79.899 Other long term (current) drug therapy; Z91.048 Other nonmedicinal substance allergy status
CPT/HCPCS: 14000; 19120; 47562; 81025; A9270; J0131; J0690; J1100; J1885; J2250; J2405; J2704; J2710; J3010; J3490; J7120; 00790

== ENCOUNTER 2024-12-14 02:17 | Observation (INO) | payer BC ==
[2024-12-14] MEDS: Acetaminophen 325 MG Tab PO ONE (03:19)
[2024-12-14] MEDS: Sodium Chloride 0.9% 1,000 ML IV ONE ×3 (03:20→05:55)
[2024-12-14] MEDS: Sodium Chloride 0.9% 10 ML Syringe FLUSH PRN (03:21)
[2024-12-14 03:50] LABS: HEMATOCRIT 37.5 % (37.0-47.0); HEMOGLOBIN 12.5 gm/dl (12.0-16.0); MEAN CORPUSCULAR HEMOGLOBIN 26.8 pg (28.0-32.0); MEAN CORPUSCULAR HGB CONC 33.3 g/dl (32.0-36.0); MEAN CORPUSCULAR VOLUME 80.5 fl (83.0-99.0); MEAN PLATELET VOLUME 8.7 fl (9.4-12.3); PLATELET COUNT,PLT 225 K/mm3 (150-400); RED BLOOD CELL COUNT 4.66 M/mm3 (4.10-5.30); WHITE BLOOD CELL COUNT,WBC 6.94 K/mm3 (3.9-11.3)
[2024-12-14 03:52] LABS: APPEARANCE,URINE CLEAR (Clear); BILIRUBIN,URINE NEGATIVE (Negative); COLOR,URINE YELLOW (Yellow); GLUCOSE,URINE NEGATIVE (Negative); KETONES,URINE TRACE (Negative); LEUKOCYTE ESTERASE,URINE NEGATIVE (Negative); NITRITE,URINE NEGATIVE (Negative); OCCULT BLOOD,URINE NEGATIVE (Negative); PH,URINE 5.5 (5.0-8.0); PROTEIN,URINE NEGATIVE (Negative); UROBILINOGEN,URINE 0.2 (0.2-1.0)
[2024-12-14 03:58] LABS: PROTHROMBIN TIME 10.6 SECONDS (9.7-12.0)
[2024-12-14 04:01] LABS: ALBUMIN 3.5 g/dl (3.4-5.0); ANION GAP 14.2 (5-15); BILIRUBIN TOTAL 0.7 mg/dL (0.2-1.0); BUN/CREATININE RATIO 11.8 (14-18); C-REACTIVE PROTEIN 1.88 mg/dL (<0.30); CALCIUM 8.2 mg/dL (8.5-10.1); CREATININE 1.1 mg/dL (0.55-1.02); EST CRCL DRUG DOSING (CG) 48.73 mL/min; POTASSIUM,K 4.2 mEq/L (3.5-5.1)
[2024-12-14 04:44] LABS: BAND PERCENT MAN 5 % (0-10); BASOPHILS PERCENT MAN 0 (0.1-1.2); EOSINOPHILS PERCENT MAN 0 % (0.7-5.8); LYMPHOCYTES % ATYPICAL MANUAL 0 %; LYMPHOCYTES PERCENT MAN 2 % (20-40); MONOCYTES PERCENT MAN 4 % (2-10); MYELOCYTE PERCENT MAN 1; PLATELET COUNT ESTIMATE ADEQUATE
[2024-12-14 04:51] LABS: CORONAVIRUS COVID-19 NAA NEGATIVE (NEGATIVE); INFLUENZA A NAA NEGATIVE (NEGATIVE); RESPIRATORY SYNCYTIAL VIR NAA NEGATIVE (NEGATIVE)
[2024-12-14] MEDS: Piperacillin/Tazobactam 4.5 GM in Sodium Chloride 0.9% 100 ML IV ONE (04:52)
[2024-12-14] MEDS: Sodium Chloride 0.9% 2,000 ML ONE (04:59)
[2024-12-14] MEDS ORDERED: Sodium Chloride 0.9% 2,000 ML IV SCH (05:00)
[2024-12-14] MEDS: diphenhydrAMINE 50 MG/ML SDV IVPUSH ONE ×3 (05:02→15:07)
[2024-12-14] MEDS: Enoxaparin 40 MG/0.4 ML Syringe SUBCUT SCH (08:55)
[2024-12-14] MEDS: Sodium Chloride 0.9% 1,000 ML IV SCH (09:39)
[2024-12-14] MEDS: Famotidine 20 MG/2 ML SDV IVPUSH ONE ×2 (09:39→15:07)
[2024-12-14] MEDS: Acetaminophen 325 MG Tab PO PRN ×2 (12:53→20:45)
[2024-12-14] MEDS: Piperacillin/Tazobactam 4.5 GM in Sodium Chloride 0.9% 100 ML IV SCH (12:54)
[2024-12-14] MEDS: Sodium Chloride 0.9% 500 ML IV ONE (12:54)
[2024-12-15 05:38] LABS: BASOPHILS PERCENT AUTO 0.8 % (0.0-1.0); EOSINOPHILS PERCENT AUTO 1.2 % (0.0-6.0); HEMATOCRIT 27.8 % (37.0-47.0); IMMATURE GRAN ABSOLUTE AUTO 0.03 K/mm3 (0.00-0.05); IMMATURE GRAN PERCENT AUTO 1.2 % (0.0-0.4); LYMPHOCYTES ABSOLUTE AUTO 0.3 K/mm3 (1.0-4.8); MEAN CORPUSCULAR HEMOGLOBIN 27.4 pg (28.0-32.0); MEAN CORPUSCULAR HGB CONC 34.2 g/dl (32.0-36.0); MEAN CORPUSCULAR VOLUME 80.1 fl (83.0-99.0); MEAN PLATELET VOLUME 9.2 fl (9.4-12.3); MONOCYTES ABSOLUTE AUTO 0.1 K/mm3 (0.0-0.8); MONOCYTES PERCENT AUTO 3.5 % (0.0-8.0); NEUTROPHILS ABSOLUTE AUTO 2.1 K/mm3 (1.8-7.7); NEUTROPHILS PERCENT AUTO 82.3 % (41.0-71.0); PLATELET COUNT,PLT 121 K/mm3 (150-400); RED BLOOD CELL COUNT 3.47 M/mm3 (4.10-5.30); WHITE BLOOD CELL COUNT,WBC 2.55 K/mm3 (3.9-11.3)
[2024-12-15 05:40] LABS: HEMOGLOBIN 9.5 gm/dl (12.0-16.0)
[2024-12-15 06:07] LABS: A/G RATIO 0.9 (1-2); ALBUMIN 2.5 g/dl (3.4-5.0); ANION GAP 13.4 (5-15); BILIRUBIN TOTAL 2.6 mg/dL (0.2-1.0); C-REACTIVE PROTEIN 13.6 mg/dL (<0.30); CREATININE 0.8 mg/dL (0.55-1.02); EST CRCL DRUG DOSING (CG) 67.01 mL/min; POTASSIUM,K 3.4 mEq/L (3.5-5.1); PROTEIN TOTAL,TP 5.3 g/dl (6.4-8.2)
[2024-12-15 06:35] LABS: CALCIUM 6.7 mg/dL (8.5-10.1)
[2024-12-15 07:50] LABS: MAGNESIUM 1.5 mg/dL (1.8-2.4); URIC ACID 2.9 mg/dL (2.6-6.0)
[2024-12-15] MEDS: Potassium Chloride 20 MEQ Tab.ER PO ONE (08:54)
[2024-12-15 13:09] VITALS: BP 116/67; PULSE 100
== END 2024-12-15 13:02 | disposition home or self-care (01) ==
LOC: JD.ED 02:17 → JD.MS 06:28
PROVIDERS: ADMIT Family Medicine; ATTEND Family Medicine
DX: A41.9 Sepsis, unspecified organism (principal); R65.20 Severe sepsis without septic shock; C50.919 Malignant neoplasm of unspecified site of unspecified female breast; T45.1X5A Adverse effect of antineoplastic and immunosuppressive drugs, initial encounter; Z91.048 Other nonmedicinal substance allergy status
CPT/HCPCS: 0241U; 36415; 71046; 80053; 81003; 83605; 83615; 83690; 83735; 84484; 84550; 85007; 85025; 85027; 85610; 85730; 86140; 87040; 93005; 96361; 96365; 96375; 99285; A9270; J1200; J1650; J2543; J7030; 96366; 96372; 96376; G0378